=== PATIENT | female | born 1975 | race Caucasian/White ===

== ENCOUNTER 2020-07-19 23:23 | Emergency (ER) | payer OTHER ==
[2020-07-20 00:50] LABS: BUN/CREAT RATIO (CALC) 9.1 RATIO; CREATININE 0.88 mg/dL (0.51-0.95); POTASSIUM 3.6 mmol/L (3.5-5.1)
[2020-07-20 02:59] LABS: BASOPHIL 0.7 % (0-2); EOSINOPHIL 0 % (0-5); HCT 37.2 % (37.0-47.0); HGB 11.8 g/dl (12.5-16.0); LYMPHOCYTE 24.7 % (15-48); MCH 29.9 pg (25.0-31.0); MCHC 31.7 g/dL (32.0-36.0); MCV 94.4 fL (78.0-100.0); MONOCYTE 6.7 % (0-12); MPV 10.4 fL (6.0-9.5); NEUTROPHIL 67.6 % (41-80); NRBC 0; PLT 141 K/uL (150-400); RBC 3.94 M/uL (4.20-5.40); RDW 13.1 % (11.5-14.0)
== END 2020-07-20 08:30 | disposition home or self-care (01) ==
LOC: FER 23:23
PROVIDERS: Emergency Medicine
DX: U07.1 COVID-19 (principal); J12.82 Pneumonia due to coronavirus disease 2019; R09.02 Hypoxemia; E07.9 Disorder of thyroid, unspecified; Z79.899 Other long term (current) drug therapy; Z88.1 Allergy status to other antibiotic agents
CPT/HCPCS: 36415; 36600; 71045; 71275; 80048; 82803; 83605; 85025; 87040; Q9967

== ENCOUNTER 2020-07-22 16:23 | Inpatient (IN) | payer OTHER ==
[2020-07-22 17:49] LABS: BASOPHIL 0.3 % (0-2); EOSINOPHIL 0 % (0-5); HCT 33.5 % (37.0-47.0); HGB 10.7 g/dl (12.5-16.0); LYMPHOCYTE 17.5 % (15-48); MCH 29.8 pg (25.0-31.0); MCHC 31.9 g/dL (32.0-36.0); MCV 93.3 fL (78.0-100.0); MONOCYTE 5.9 % (0-12); MPV 9.5 fL (6.0-9.5); NEUTROPHIL 75.4 % (41-80); NRBC 0; PLT 208 K/uL (150-400); RBC 3.59 M/uL (4.20-5.40); RDW 13.2 % (11.5-14.0); WBC 3.4 K/uL (4.0-10.5)
[2020-07-22 18:11] LABS: ALBUMIN 2.8 g/dL (3.4-5.0); BILIRUBIN - TOTAL 0.3 mg/dL (0.2-1.0); BUN/CREAT RATIO (CALC) 10.7 RATIO; CREATININE 0.84 mg/dL (0.51-0.95); GLOBULIN (CALCULATION) 4.4 g/dL; POTASSIUM 3.4 mmol/L (3.5-5.1); TOTAL PROTEIN 7.2 g/dL (6.4-8.2)
[2020-07-22 18:42] LABS: LACTIC ACID 0.8 mmol/L (0.4-1.9)
[2020-07-22 18:49] LABS: BILIRUBIN NEGATIVE (NEGATIVE); BLOOD 3+ Ery/uL (NEGATIVE); CLARITY CLEAR (CLEAR); COLOR YELLOW (YELLOW); GLUCOSE (U) NORMAL (NORMAL); LEUKOCYTES NEGATIVE Leu/uL (NEGATIVE); NITRITE NEGATIVE (NEGATIVE); PROTEIN NEGATIVE (NEGATIVE); UROBILINOGEN 0.2 mg/dL (0.2-1.0)
[2020-07-22 18:58] LABS: BACTERIA TRACE; URINARY WBC RARE
[2020-07-22] MEDS ORDERED: SYNTHROID25 MCG PO (22:12)
[2020-07-23 05:15] LABS: BASOPHIL 0 % (0-2); EOSINOPHIL 0 % (0-5); HCT 34.3 % (37.0-47.0); HGB 10.9 g/dl (12.5-16.0); LYMPHOCYTE 18.8 % (15-48); MCHC 31.8 g/dL (32.0-36.0); MCV 94.5 fL (78.0-100.0); MONOCYTE 2.9 % (0-12); MPV 9.4 fL (6.0-9.5); NEUTROPHIL 77.6 % (41-80); NRBC 0; PLT 237 K/uL (150-400); RBC 3.63 M/uL (4.20-5.40); RDW 13.2 % (11.5-14.0); WBC 2.8 K/uL (4.0-10.5)
[2020-07-23 05:54] LABS: ALBUMIN 2.7 g/dL (3.4-5.0); ALKALINE PHOSHATASE 54 U/L (46-116); ALT 29 U/L (14-59); AST 32 U/L (15-37); BILIRUBIN - TOTAL 0.2 mg/dL (0.2-1.0); BUN 11 mg/dL (7-18); BUN/CREAT RATIO (CALC) 12.9 RATIO; C-REACTIVE PROTEIN >18.00 mg/dL (<=0.90); CHLORIDE 101 mmol/L (98-107); CO2 (BICARBONATE) 26 mmol/L (21-32); CREATININE 0.85 mg/dL (0.51-0.95); GLOBULIN (CALCULATION) 4.7 g/dL; GLUCOSE 251 mg/dL (74-106); POTASSIUM 3.3 mmol/L (3.5-5.1); TOTAL PROTEIN 7.4 g/dL (6.4-8.2)
--- NOTE | 2020-07-23 15:00 | NUR ---
PATIENT TRANSFERED FROM [facility] INTO ICU 1, ALL BELONGINGS WITH PATIENT. PATIENT WAS ABLE TO AMBULATE FROM [facility] TO BED, BECAME TACHYPNIC AND LABORED WITH AMBULATION. BP 144/76, HR 70, 96% ON 100% NRB RR 22, 98.3 ORAL. NO DISTRESS AT THIS TIME. CALL LIGHT AND FALL PRECAUTIONS EXPLAINED. PERFORMED ISB. WILL CONTINUE TO MONITOR
--- NOTE | 2020-07-23 16:56 | NUR ---
PATIENTS WEDDING RING GIVEN TO PATIENTS TO TAKE HOME.
[2020-07-25 03:32] LABS: BASOPHIL 0.2 % (0-2); EOSINOPHIL 0 % (0-5); HCT 32.6 % (37.0-47.0); HGB 10.1 g/dl (12.5-16.0); LYMPHOCYTE 14.8 % (15-48); MCH 29.8 pg (25.0-31.0); MCV 96.2 fL (78.0-100.0); MONOCYTE 6.5 % (0-12); NEUTROPHIL 75.3 % (41-80); NRBC 0; PLT 306 K/uL (150-400); RBC 3.39 M/uL (4.20-5.40); RDW 13.4 % (11.5-14.0)
[2020-07-25 03:37] LABS: BUN/CREAT RATIO (CALC) 21.2 RATIO; C-REACTIVE PROTEIN 5.5 mg/dL (<=0.90); CREATININE 0.8 mg/dL (0.51-0.95)
[2020-07-25 03:53] LABS: WBC 6.3 K/uL (4.0-10.5)
--- NOTE | 2020-07-25 04:51 | NUR ---
PT. WAS ON RIGHT SIDE FROM 2244 TP 2330 FROM 2330 TO 0100 PT. WAS PRONE AND TOLERATED WELL WITH O2 FROM 98%-100% PT. COULD NOT TOLERAT PRONING ANY LONGER AND LAID ON RIGHT SIDE TILL 329
[2020-07-27 04:53] LABS: BASOPHIL 0.2 % (0-2); EOSINOPHIL 0.2 % (0-5); HCT 33.8 % (37.0-47.0); HGB 10.7 g/dl (12.5-16.0); LYMPHOCYTE 19.5 % (15-48); MCH 29.8 pg (25.0-31.0); MCHC 31.7 g/dL (32.0-36.0); MCV 94.2 fL (78.0-100.0); MONOCYTE 6.4 % (0-12); MPV 8.7 fL (6.0-9.5); NEUTROPHIL 69.9 % (41-80); NRBC 0; PLT 343 K/uL (150-400); RBC 3.59 M/uL (4.20-5.40); RDW 13.1 % (11.5-14.0); WBC 6.4 K/uL (4.0-10.5)
[2020-07-27 05:24] LABS: ALBUMIN 2.6 g/dL (3.4-5.0); BILIRUBIN - TOTAL 0.3 mg/dL (0.2-1.0); BUN/CREAT RATIO (CALC) 19.5 RATIO; C-REACTIVE PROTEIN 3.2 mg/dL (<=0.90); CREATININE 0.82 mg/dL (0.51-0.95); GLOBULIN (CALCULATION) 3.9 g/dL; POTASSIUM 4.2 mmol/L (3.5-5.1); TOTAL PROTEIN 6.5 g/dL (6.4-8.2)
[2020-07-30 03:35] LABS: BASOPHIL 0.3 % (0-2); EOSINOPHIL 0.7 % (0-5); HCT 37.4 % (37.0-47.0); HGB 11.5 g/dl (12.5-16.0); LYMPHOCYTE 17.2 % (15-48); MCH 30.1 pg (25.0-31.0); MCHC 30.7 g/dL (32.0-36.0); MCV 97.9 fL (78.0-100.0); MONOCYTE 6.6 % (0-12); MPV 9.8 fL (6.0-9.5); NEUTROPHIL 68.7 % (41-80); NRBC 0; PLT 331 K/uL (150-400); RBC 3.82 M/uL (4.20-5.40); RDW 13.4 % (11.5-14.0); WBC 9.1 K/uL (4.0-10.5)
[2020-07-30 04:32] LABS: BUN/CREAT RATIO (CALC) 17.7 RATIO; CREATININE 0.79 mg/dL (0.51-0.95); POTASSIUM 4.2 mmol/L (3.5-5.1)
[2020-07-31] MEDS ORDERED: VENTOLIN HFA IN18 GM INH (11:45)
[2020-07-31] MEDS ORDERED: DECADRON6 MG PO (11:45)
--- NOTE | 2020-07-31 12:36 | NUR ---
07/31/20 Ms. Garcia is being discharged home. She has needed 02. No services are needed.
== END 2020-07-31 13:09 | disposition home or self-care (01) | DRG 871 ==
LOC: FER 16:23 → FMS 20:23 → FICU 07-23 13:33 → FTCU 07-25 22:12 → FMS 07-28 07:59
PROVIDERS: Allergy & Immunology Allergy; Internal Medicine; Nurse Practitioner; Nurse Practitioner Family; ADMIT Internal Medicine
PROC: 8E0ZXY6 Isolation (ICD-10-PCS; principal; 2020-07-22)
PROC: XW033E5 Introduction of Remdesivir Anti-infective into Peripheral Vein, Percutaneous Approach, New Technology Group 5 (ICD-10-PCS; 2020-07-22)
PROC: 3E0333Z Introduction of Anti-inflammatory into Peripheral Vein, Percutaneous Approach (ICD-10-PCS; 2020-07-22)
DX: A41.89 Other specified sepsis (principal); U07.1 COVID-19; J12.82 Pneumonia due to coronavirus disease 2019; J96.01 Acute respiratory failure with hypoxia; E03.9 Hypothyroidism, unspecified; Z85.820 Personal history of malignant melanoma of skin; Z88.1 Allergy status to other antibiotic agents
CPT/HCPCS: 36415; 36600; 71275; 80048; 80053; 81001; 82728; 82803; 83605; 85025; 85379; 86140; 93005; 94640; 94762; C9399; J0456; J1650; J1885; J2930; J7030; J7050; J8540; Q9967